=== PATIENT | male | born 1955 | race Two or more races ===

== ENCOUNTER 2024-05-27 08:20 | Day surgery (SDC) | payer MEDICARE, SELFPAY ==
[2024-05-27] VITALS (20 sets, daily range): BP systolic 99–121; BP diastolic 50–73; BMI 25.0
[2024-05-27] MEDS: LOW STRENGTH ASPIRIN 81 MG PO (09:15)
[2024-05-27] MEDS: PLAVIX 75 MG PO (09:16)
[2024-05-27 10:20] LABS: ACT-LR - POC 245 Seconds (116-155)
[2024-05-27 12:12] LABS: ACT-LR - POC > 397 Seconds (116-155)
--- NOTE | 2024-05-27 13:14 | ITS.CL.CATH ---
[employer]il [facility] Attendant - Catheterization
Cardiac Catheterization
Procedure Report:
LEFT HEART CATHETERIZATION
Date of Procedure: May 27, 2024
Procedures performed:
1: Percutaneous coronary invention left anterior descending artery with placement of a 3.0 x 26 millimeter Laporte drug-eluting stent postdilated with intravascular ultrasound guidance at high pressure with a 3.25 mm diameter noncompliant balloon.
Primary Care Physician: None
Primary Cleaner Wall: Dr. Christian Zambrano or myself
INDICATION: The patient is a 69-year-old man who presented last week with a non-ST elevation NE. He previously had no medical care. Cardiac catheterization done at [facility] showed acute occlusion of the circumflex artery which was
treated with percutaneous intervention using a 2.5 x 18 mm Kike drug-eluting stent. He is referred for staged PCI of the proximal LAD lesion. He has had no recurrent angina. He has been compliant with aspirin and Plavix which he took this morning.
ACCESS: The patient was prepped and draped in usual sterile fashion. A 6 Sudanese sheath was placed in the right radial artery using the Seldinger over the wire technique.
HEMODYNAMIC FINDINGS (mmHg):
LV(s/d,EDP): Valve not crossed
Ao(s/d,m): 105/60, 79
ANGIOGRAPHIC FINDINGS:
Coronary Angiography:
Please refer to full diagnostic study on prior cardiac catheterization performed on May 18, 2024.
The previously placed circumflex stent is widely patent.
Percutaneous Coronary Intervention (PCI): The patient was pretreated with aspirin and Plavix. Unfractionated heparin was given. A 6 Sudanese XB 3.5 guiding catheter was used to engage the left main. A Hi-Torque floppy wire was successfully advanced
across the LAD. Predilation was performed with a 2.5 x 15 mm balloon. Next a 3.0 x 26 mm Kike drug-eluting stent was deployed across the lesion. Intravascular ultrasound imaging was performed to guide appropriate post dilation. Ultimately I
chose to postdilated with a 3.25 mm diameter noncompliant balloon distally at 16 maría and proximally at 18 maría.
FINAL RESULT: 0% in-stent residual stenosis with an outstanding angiographic result and MAINOR-3 flow in all vessels.
Fluoroscopy Time (min): 7.2
Radiation Dose (mGy): 168
DAP (Gy.cm2): 11
Closure device: None. A TR band was applied for hemostasis at the right wrist.
Complications: None.
ASSESSMENT:
1: Successful PCI of the LAD with placement of drug-eluting stent as described above.
2: Widely patent previously placed circumflex stent.
CONCLUSIONS and RECOMMENDATIONS:
1: Routine post drug-eluting stent medical therapy and monitoring.
2: Medical therapy for coronary artery disease and recent non-STEMI.
3: Importance of follow-up with primary care again reinforced.
Susie Olivarez M.D.
--- NOTE | 2024-05-27 13:18 | W.PN.UPDATE ---
Update Note
Progress Note Update
69 yo WM s/p PCI LAD staged (Same day). He denies cp, sob, dennise diet, voiding, amb w/o dizziness, EKG SR with PAC/PVC's and one NSVT episode asymptomatic, R rad with TR Band, no HT> He will be on DAPT ASA/Plavix. Cardiac rehab c/s. Activity
restrictions reviewed. He will f/u Dr. Zambrano in 2-4 weeks. He is for d/c home after 3pm.
== END 2024-05-27 15:05 | disposition home or self-care (01) ==
LOC: CATH 08:20
PROVIDERS: ATTENDING PHYSICIAN Internal Medicine Interventional Cardiology; FAMILY PHYSICIAN Family Medicine
DX: I25.10 Atherosclerotic heart disease of native coronary artery without angina pectoris (principal); Z95.5 Presence of coronary angioplasty implant and graft; Z79.82 Long term (current) use of aspirin; Z79.02 Long term (current) use of antithrombotics/antiplatelets; Z79.899 Other long term (current) drug therapy
CPT/HCPCS: 92978; 85347; 93005; C1725; C1753; C1769; C1874; C1887; C1894; C9600; Q9967